=== PATIENT | female | born 1945 | race Caucasian/White ===

== ENCOUNTER 2019-06-25 06:49 | Emergency (ER) | payer OTHER, MEDICARE ==
[~2019-06-25] VITALS: Ht 165.1 cm; Wt 54.4 kg
[2019-06-25 07:00] VITALS: BP_SYST 133
--- NOTE | 2019-06-25 07:00 | NUR ---
BROUGHT BACK TO BED #5 VIA WHEELCHAIR, ASSISTED INTO BED BY STAFF AND TRIAGED. REPORT GIVEN TO BRYANNA
--- NOTE | 2019-06-25 07:20 | NUR ---
Patient presented to ER with chin laceration. Patient A&Ox4, laceration to underside of chin approx. 2.5 cm, bleeding controlled, ambulatory to ER, cap refill <3, pain 8/10, denies N/V/D. Patient states she fell at [facility] ER, then came to [facility] ER to visit brought in by ALYSON.
--- NOTE | 2019-06-25 07:25 | NUR ---
DR MORATAYA AT BEDSIDE PERFORMING SUTURING.
[2019-06-25 08:20] VITALS: BP_SYST 130
--- NOTE | 2019-06-25 08:20 | NUR ---
Patient given written and verbal discharge instructions and verbalizes understanding. ER MD discussed with patient the results and treatment provided. Patient in stable condition. ID arm band removed. No Rx of given. Patient educated on pain management and to follow up with PMD. Pain Scale 2/10 tolerable for patient. Opportunity for questions provided and answered. Medication side effect fact sheet provided.
== END 2019-06-25 08:20 | disposition home or self-care (01) ==
LOC: SED 06:49
DX: S01.81XA Laceration without foreign body of other part of head, initial encounter (principal); W18.39XA Other fall on same level, initial encounter; Y93.89 Activity, other specified; Y92.89 Other specified places as the place of occurrence of the external cause; Y99.8 Other external cause status
CPT/HCPCS: 12013; 99283; J7030

== ENCOUNTER 2019-06-25 14:32 | Emergency (ER) | payer OTHER, MEDICARE ==
[~2019-06-25] VITALS: Ht 165.1 cm; Wt 52.6 kg
[2019-06-25 14:32] VITALS: BP_SYST 139
--- NOTE | 2019-06-25 14:32 | NUR ---
Patient triaged and placed in waiting room. VSS and patient appears in no acute distress at this time. Accompanied by SELF, awaiting available bed, and MD notified of need for MSE.
--- NOTE | 2019-06-25 14:50 | NUR ---
Patient transported to radiology via , accompanied by bag grader.
--- NOTE | 2019-06-25 15:59 | NUR ---
Patient to ER bed 06 to gown for evaluation. Side rails up.
--- NOTE | 2019-06-25 16:10 | NUR ---
ER at bedside examining patient.
[2019-06-25] MEDS ORDERED: KETOROLAC TROMETHAMINE 15 MG VIAL IM ONE (17:15)
--- NOTE | 2019-06-25 17:40 | NUR ---
medicated the pt w/ Toradol. Will reassess.
[2019-06-25 18:14] VITALS: BP_SYST 161
--- NOTE | 2019-06-25 18:15 | NUR ---
Pt reports no pain, medication helped
--- NOTE | 2019-06-25 18:16 | NUR ---
Patient given written and verbal discharge instructions and verbalizes understanding. ER MD discussed with patient the results and treatment provided. Patient in stable condition. ID arm band removed. Rx of Motrin and [place] given. Patient educated on pain management and to follow up with PMD. Pain Scale 0. Opportunity for questions provided and answered. Medication side effect fact sheet provided.
== END 2019-06-25 18:16 | disposition home or self-care (01) ==
LOC: SED 14:32
DX: S63.502A Unspecified sprain of left wrist, initial encounter (principal); X58.XXXA Exposure to other specified factors, initial encounter; Y93.89 Activity, other specified; Y92.89 Other specified places as the place of occurrence of the external cause; Y99.8 Other external cause status
CPT/HCPCS: 73110; 96372; 99283; J1885